=== PATIENT | female | born 1975 | race Two or more races ===

== ENCOUNTER 2017-10-13 00:48 | Emergency (ER) | payer MEDICAID ==
[~2017-10-13] VITALS: Ht 162.6 cm; Wt 90.7 kg
--- NOTE | 2017-10-13 02:05 | NUR ---
URINE COLLECTED. [facility] FOR SUPERINTENDENT STEVEDORING.
--- NOTE | 2017-10-13 02:10 | NUR ---
PT AMBULATORY TO ER BED 5, PT C/O ABD PAIN WITH UTI S/S X 5 DAYS. PT VSS/RESP EVEN UNLABORED/NAD NOTED/SKIN WARM AND DRY/AOX4. PT PLACED IN GOWN AND ON VS/SHAMPOO PERSON. AWAITING MD MELENDEZ.
[2017-10-13 02:14] LABS: APPEARANCE,URINE SL CLOUDY (CLEAR); BILIRUBIN,URINE NEGATIVE (NEGATIVE); BLOOD, URINE NEGATIVE Ery/uL (NEGATIVE); COLOR,URINE YELLOW (YELLOW); KETONES,URINE NEGATIVE (NEGATIVE); LEUKOCYTE ESTERASE ,URINE NEGATIVE (NEGATIVE); NITRITE, URINE NEGATIVE (NEGATIVE); PROTEIN,URINE NEGATIVE (NEGATIVE); UGLUCOSE NEGATIVE (NEGATIVE); UROBILINOGEN,URINE 0.2 EU/dL (0.2)
--- NOTE | 2017-10-13 02:30 | NUR ---
18G IV TO LAC USING ASEPTIC TECH, BLOOD SAMPLE HANDED OVER TO LAB AT BEDSIDE. IV FLUSHES EASILY WITH NS.
[2017-10-13] MEDS ORDERED: ONDANSETRON HCL/PF 4 MG/2 ML VIAL ONE (02:33)
[2017-10-13] MEDS ORDERED: HYDROMORPHONE INJ 2 MG/ML DISP.SYRIN ONE (02:34)
[2017-10-13 02:38] LABS: BASOPHILS % (AUTO) 0.5 % (0.0-2.0); EOSINOPHILS # (AUTO) 0.2 /CMM (0.0-0.7); HEMATOCRIT 37 % (33-45); HEMOGLOBIN 12.6 g/dL (11.5-14.8); LYMPHOCYTES # (AUTO) 2.3 /CMM (0.8-4.8); LYMPHOCYTES % (AUTO) 30.2 % (20.0-44.0); MEAN CORPUSCULAR HEMOGLOBIN 29 PG (26.0-33.0); MEAN CORPUSCULAR HGB CONC 34 g/dl (31.0-36.0); MEAN CORPUSCULAR VOLUME 85 fL (82-100); MONOCYTES # (AUTO) 0.6 /CMM (0.1-1.30); MONOCYTES % (AUTO) 7.4 % (2.0-12.0); NEUTROPHILS # (AUTO) 4.6 /CMM (1.8-8.9); NEUTROPHILS % (AUTO) 58.9 % (43.0-81.0); PLATELET COUNT (AUTO) 296 /CMM (150-450); RDW COEFFICIENT OF VARIATION 14.3 (11.5-15.0); WHITE BLOOD COUNT (AUTO) 7.8 K/uL (4.3-11.0)
[2017-10-13] MEDS: HYDROMORPHONE INJ 2 MG/ML DISP.SYRIN IV ONE (02:41)
[2017-10-13] MEDS: ONDANSETRON HCL/PF 4 MG/2 ML VIAL IVP ONE (02:41)
[2017-10-13 02:55] LABS: INR 0.97 (0.87-1.13); PROTHROMBIN TIME 10.1 SECS (9.5-12.7)
[2017-10-13 02:56] LABS: CREATININE 0.7 mg/dL (0.6-1.3); POTASSIUM 3.6 mmol/L (3.5-5.1)
[2017-10-13 03:15] LABS: ALBUMIN 3.5 g/dL (3.4-5.0); BILIRUBIN,TOTAL 0.2 mg/dL (0.2-1.0); TOTAL PROTEIN, SERUM 7.4 g/dL (6.4-8.2)
--- NOTE | 2017-10-13 04:24 | NUR ---
ULTRASOUND AT BEDSIDE.
--- NOTE | 2017-10-13 05:24 | NUR ---
IV removed. Catheter intact and site benign. Pressure and 4x4 applied to site. No bleeding noted. Patient discharged with family to home in stable condition. Written and verbal after care instructions given, pt instructed not to drive. Patient verbalizes understanding of instruction. Pt ambulatory with a steady gait.
[2017-10-13 05:25] VITALS: BP 99/76
== END 2017-10-13 05:27 | disposition home or self-care (01) ==
LOC: ER 00:51
DX: N83.202 Unspecified ovarian cyst, left side (principal); Z86.711 Personal history of pulmonary embolism; Z98.890 Other specified postprocedural states; Z90.89 Acquired absence of other organs
CPT/HCPCS: 36415; 76856-TC; 80048-TC; 80076-TC; 81000-TC; 84702-TC; 85025-TC; 85730-TC; A4606; J1170; J2405; Z7610

== ENCOUNTER 2023-08-23 19:22 | Emergency (ER) | payer MEDICAID, OTHER ==
[~2023-08-23] VITALS: Ht 162.6 cm; Wt 79.8 kg
[2023-08-23] MEDS ORDERED: ACETAMINOPHEN ES 500 MG TABLET PO ONE (22:00)
[2023-08-23] MEDS ORDERED: ACETAMINOPHEN ES 500 MG TABLET ONE (22:17)
[2023-08-23] MEDS ORDERED: IBUP-1953 PO ×2 (22:27→23:13)
[2023-08-23] MEDS ORDERED: CLIN300C12 PO ×2 (22:27→23:13)
[2023-08-23 22:43] VITALS: BP 116/65; TEMP 98.8; O2SAT 100
[2023-08-24] MEDS ORDERED: CLIN300C12 PO (00:37)
== END 2023-08-23 22:50 | disposition home or self-care (01) ==
LOC: ER 19:28
DX: N75.0 Cyst of Bartholin's gland (principal); D51.0 Vitamin B12 deficiency anemia due to intrinsic factor deficiency; Z98.890 Other specified postprocedural states; Z79.899 Other long term (current) drug therapy

== ENCOUNTER 2024-09-18 03:25 | Emergency (ER) | payer OTHER ==
[~2024-09-18] VITALS: Ht 162.6 cm; Wt 68.0 kg
[~2024-09-18 03:25] MED LIST: CLIN300C12 PO; IBUP-1953 PO
[2024-09-18] MEDS ORDERED: ONDANSETRON HCL/PF 4 MG/2 ML VIAL ONE ×2 (03:45→04:33)
[2024-09-18 03:51] LABS: APPEARANCE,URINE CLOUDY (CLEAR); BILIRUBIN,URINE NEGATIVE (NEGATIVE); BLOOD, URINE NEGATIVE Ery/uL (NEGATIVE); COLOR,URINE YELLOW (YELLOW); KETONES,URINE NEGATIVE (NEGATIVE); LEUKOCYTE ESTERASE ,URINE NEGATIVE (NEGATIVE); NITRITE, URINE NEGATIVE (NEGATIVE); PH,URINE 7.5 (5.0-8.0); PROTEIN,URINE NEGATIVE (NEGATIVE); UGLUCOSE NEGATIVE (NEGATIVE); UROBILINOGEN,URINE 0.2 EU/dL (0.2)
[2024-09-18] MEDS: IV NS 0.9% 1,000 ML BAG IV ONE (03:56)
[2024-09-18] MEDS: ONDANSETRON HCL/PF 4 MG/2 ML VIAL IVP ONE (03:56)
[2024-09-18 04:07] LABS: BASOPHILS % (AUTO) 0.9 % (0.0-2.0); EOSINOPHILS # (AUTO) 0.1 K/uL (0.0-0.7); EOSINOPHILS % (AUTO) 2.4 % (0.0-6.0); HEMATOCRIT 37 % (33-45); HEMOGLOBIN 12.9 g/dL (11.5-14.8); LYMPHOCYTES # (AUTO) 1.8 K/uL (0.8-4.8); MEAN CORPUSCULAR HEMOGLOBIN 30 PG (26.0-33.0); MEAN CORPUSCULAR HGB CONC 35 g/dl (31.0-36.0); MEAN CORPUSCULAR VOLUME 86 fL (82-100); MONOCYTES # (AUTO) 0.4 K/uL (0.1-1.30); MONOCYTES % (AUTO) 6.9 % (2.0-12.0); NEUTROPHILS # (AUTO) 3.2 K/uL (1.8-8.9); NEUTROPHILS % (AUTO) 57.8 % (43.0-81.0); PLATELET COUNT (AUTO) 254 K/uL (150-450); RED BLOOD CELL COUNT(AUTO) 4.31 MIL/uL (4.0-5.2); RED CELL DISTRIBUTION WIDTH 13.5 % (11.5-15.0); WHITE BLOOD COUNT (AUTO) 5.5 K/uL (4.3-11.0)
[2024-09-18 04:17] LABS: CALCIUM, SERUM 9.4 mg/dL (8.5-10.1); CREATININE 0.9 mg/dL (0.6-1.3)
[2024-09-18 04:21] LABS: INR 1.09 (0.91-1.10); PARTIAL THROMBOPLASTIN TIME 26.5 SEC (24.3-34.3); PROTHROMBIN TIME 11.5 SECS (9.2-11.1)
[2024-09-18 04:22] LABS: BILIRUBIN,DIRECT 0.2 mg/dL (0.0-0.2); BILIRUBIN,TOTAL 0.5 mg/dL (0.2-1.0); TOTAL PROTEIN, SERUM 7.7 g/dL (6.4-8.2)
[2024-09-18 04:23] LABS: POTASSIUM 2.6 mmol/L (3.5-5.1)
[2024-09-18] MEDS ORDERED: POTASSIUM CL. PREMIX PERIPHER. 50 ML ONE ×3 (04:26→06:31)
[2024-09-18] MEDS ORDERED: POTASSIUM CHLORIDE 20 MEQ TAB.PRT.SR PO ONE (04:27)
[2024-09-18] MEDS: POTASSIUM CHLORIDE 10 MEQ/50 ML PREMIXED IVPB FOR PERIPHERAL LINE IV ONE (04:30)
[2024-09-18] MEDS: POTASSIUM CHLORIDE 20 MEQ TAB.PRT.SR PO ONE (04:32)
[2024-09-18] MEDS ORDERED: MINERAL OIL 133 ML (PYXIS) 1 EA ENEMA RC ONE (05:30)
[2024-09-18] MEDS: ONDANSETRON HCL/PF 4 MG/2 ML VIAL IV ONE (05:51)
[2024-09-18] MEDS ORDERED: Magnesium 1GM/D5W 100ML PREMIX 100 ML IV ONE (08:30)
[2024-09-18] MEDS: Magnesium 1GM/D5W 100ML PREMIX 100 ML IV SCH (08:30)
[2024-09-18] MEDS: Magnesium 1GM/D5W 100ML PREMIX PIGGYBACK IV ONE (08:44)
[2024-09-18] MEDS ORDERED: CYAN100T44 PO (09:23)
[2024-09-18] MEDS ORDERED: FURO20TA4 PO (09:23)
[2024-09-18] MEDS ORDERED: VITAMIN D3 GUMMIES PO (09:23)
[2024-09-18] MEDS ORDERED: ROSU10TA2 PO (09:23)
[2024-09-18 09:29] LABS: CALCIUM, SERUM 8.1 mg/dL (8.5-10.1); CREATININE 0.7 mg/dL (0.6-1.3)
[2024-09-18] MEDS ORDERED: ONDA4TAB5 PO (09:44)
[2024-09-18 09:54] VITALS: BP 104/81; TEMP 98.2; O2SAT 100
== END 2024-09-18 09:54 | disposition home or self-care (01) ==
LOC: ER 03:30 → UNDOADMIN 08:59 → TELE 08:59 → ER 09:54 → UNDODISIN 18:22
DX: K56.41 Fecal impaction (principal); K85.90 Acute pancreatitis without necrosis or infection, unspecified; E87.6 Hypokalemia; Z86.711 Personal history of pulmonary embolism; Z98.84 Bariatric surgery status; Z90.49 Acquired absence of other specified parts of digestive tract; Z98.891 History of uterine scar from previous surgery
CPT/HCPCS: 99285; 74176; 96365; 96366; 96375; 96368; 93005; 96376; 85025; 80048 ×2; 83690; 80076; 83735; 81003; 36415; 85730; J2405 ×2; J7030; J3480 ×3; A4223; J3475; G0378